=== PATIENT | male | born 1990 | race African-American/Black ===

== ENCOUNTER 2016-08-28 23:15 | Emergency (ER) | payer SELFPAY ==
[~2016-08-28] VITALS: Ht 175.3 cm; Wt 73.0 kg
[2016-08-28] MEDS ORDERED: ONDANSETRON HCL 4MG/2ML VIAL ONE (23:24)
[2016-08-28] MEDS ORDERED: MORPHINE SULFATE 10 MG/ML CPJ ONE (23:24)
[2016-08-28] MEDS ORDERED: SODIUM CHLORIDE 0.9% 1,000 ML IV ONE (23:33)
[2016-08-28] MEDS ORDERED: MORPHINE SULFATE 4 MG/ML CPJ (NOT FOR IM USE) IV STA (23:33)
[2016-08-28] MEDS ORDERED: ONDANSETRON HCL 4MG/2ML VIAL IV STA (23:33)
[2016-08-28] MEDS ORDERED: PROPOFOL 10MG/ML 100ML 100 ML IV ONE ×2 (23:36→23:45)
[2016-08-28] MEDS ORDERED: ETOMIDATE 2MG/ML 10ML VIAL IV ONE (23:45)
[2016-08-28] MEDS ORDERED: TETANUS, DIPHTHERIA, PERTUSSIS VAC/PF 0.5ML (>7YR OLD) IM ONE (23:45)
[2016-08-28] MEDS ORDERED: CEFAZOLIN 1000MG PREMIX 50 ML IV ONE (23:45)
[2016-08-28] MEDS ORDERED: SUCCINYLCHOLINE CHLORIDE 200MG/10ML VIAL IV ONE (23:45)
[2016-08-29 00:18] VITALS: BP 130/70
[2016-08-29] MEDS ORDERED: VECURONIUM BROMIDE 10 MG/VIAL IV ONE (12:23)
[2016-08-29] MEDS ORDERED: SUCCINYLCHOLINE CHLORIDE 200MG/10ML VIAL IV ONE (12:23)
[2016-08-29] MEDS ORDERED: ETOMIDATE 2MG/ML 10ML VIAL IV ONE (12:23)
[2016-08-29] MEDS ORDERED: STERILE WATER FOR INJECTION 10ML VIAL ONE (12:23)
== END 2016-08-28 23:40 | disposition short-term general hospital (02) ==
LOC: ER 23:15
DX: S11.90XA Unspecified open wound of unspecified part of neck, initial encounter (principal); W34.09XA Accidental discharge from other specified firearms, initial encounter; Y93.89 Activity, other specified; Y99.8 Other external cause status; Y92.89 Other specified places as the place of occurrence of the external cause
CPT/HCPCS: 31500; 71010; 96361; 96374; 96375; 99291; A4216; J0330; J2270; J2405; J2704; J3490; J7030